=== PATIENT | female | born 2000 | race Caucasian/White ===

== ENCOUNTER → 2025-10-10 | Outpatient (CLI) | payer OTHER ==
[2025-10-13 08:52] LABS: HEPATITIS B SURF AB QUANT 23.0 mIU/mL (> OR = 10)
[2025-10-13 12:51] LABS: HERPES ZOSTER, VARICELLA IgG 3.34 S/CO (>=1.00)
== END ==
LOC: M LAB 17:23
PROVIDERS: ATTEND Physician Assistant Medical
DX: Z02.0 Encounter for examination for admission to educational institution (principal)

== ENCOUNTER → 2025-10-18 | Outpatient (CLI) | payer OTHER | LOC: M LAB 16:59 | PROVIDERS: ATTEND Student in an Organized Health Care Education/Training Program | DX: Z02.1 Encounter for pre-employment examination (principal) ==